=== PATIENT | female | born 2000 | race Caucasian/White ===

== ENCOUNTER 2019-10-06 21:20 | Emergency (ER) | payer SELFPAY ==
--- NOTE | 2019-10-06 21:30 | Event Note ---
ED Screening Note Date of service: 10/06/19 Time: 21:26 ED Screening Note: Pt c/o overdose on prozac x today. States she took 5 20 mg tabs @ 5pm c/o dry mouth and left arm pain denies intention to harm herself-states she was trying to calm her anxiety hx of attempted suicide in the past Pt is accompanied by her mother This initial assessment/diagnostic orders/clinical plan/treatment(s) is/are subject to change based on patients health status, clinical progression and re- assessment by fellow clinical providers in the ED. Further treatment and workup at subsequent clinical providers discretion. Patient/guardian urged not to elope from the ED as their condition may be serious if not clinically assessed and managed. Initial orders include: labs mental health eval
[2019-10-06 22:06] LABS: Basophils % (Auto) 0.4 % (0.0-1.8); Eosinophils % (Auto) 0.1 % (0.0-4.3); Hematocrit 33.5 % (30.3-42.9); Hemoglobin 11.3 gm/dl (10.1-14.3); Lymphocytes # (Auto) 1.8 K/mm3 (1.2-5.4); Lymphocytes % (Auto) 17.2 % (13.4-35.0); Mean Corpuscular HGB Conc 34 % (30-34); Mean Corpuscular Volume 81 fl (79-97); Monocytes # (Auto) 0.7 K/mm3 (0.0-0.8); Monocytes % (Auto) 6.6 % (0.0-7.3); Platelet Count 282 K/mm3 (140-440); Red Blood Count 4.15 M/mm3 (3.65-5.03); Red Cell Distribution Width 14.6 % (13.2-15.2)
--- NOTE | 2019-10-06 22:11 | Emergency Department Report ---
ED General Adult HPI - General Chief complaint: Overdose Stated complaint: OVERDOSE Time Seen by Provider: 10/06/19 21:26 Source: patient, family, RN notes reviewed Mode of arrival: Ambulatory Limitations: No Limitations - History of Present Illness Initial comments: This is a pleasant 19-year-old female who is not known to this provider previously. During the entire history and physical, I am guidance counselor in escorted by nurse Chio Berrios The patient presents to the ER after she took extra fluoxetine, 20 mg, 5 tablets, at 5:00 PM today. She states that she did not come to the ER until now because she waited a few hours to tell her mother because she was embarrassed. She reports that this was not a homicidal or suicidal gesture, but she took the extra money because she was feeling anxious about psychosocial situations. She also endorses resolved left anterior forearm cramping. The patient has no additional complaints at this time. The patient states she is not homicidal, suicidal, is not experiencing hallucinations, and she does not have access to guns or firearms. Her mother is at the bedside, and she corroborates this. -: Sudden Consistency: now resolved Improves with: none Worsens with: none - Related Data Allergies Allergy/AdvReac Type Severity Reaction Status Date / Time No Known Allergies Allergy Unverified 10/06/19 21:34 ED Review of Systems ROS: Stated complaint: OVERDOSE Other details as noted in HPI Constitutional: denies: fever Eyes: denies: eye discharge ENT: denies: congestion Respiratory: denies: wheezing Cardiovascular: denies: syncope Gastrointestinal: denies: abdominal pain Musculoskeletal: myalgia Psychiatric: anxiety. denies: auditory hallucinations, visual hallucinations, homicidal thoughts, suicidal thoughts ED Past Medical Hx - Past Medical History Previous Medical History?: Yes Hx Psychiatric Treatment: Yes (anxiety,depression) - Surgical History Past Surgical History?: No - Social History Smoking Status: Never Smoker Substance Use Type: None ED Physical Exam - General Limitations: No Limitations General appearance: alert, in no apparent distress - Head Head exam: Present: atraumatic, normocephalic - Eye Eye exam: Present: normal appearance, EOMI. Absent: nystagmus - ENT ENT exam: Present: normal exam, normal orophraynx, mucous membranes moist, normal external ear exam - Neck Neck exam: Present: normal inspection, full ROM. Absent: tenderness, meningismus - Respiratory Respiratory exam: Present: normal lung sounds bilaterally. Absent: respiratory distress - Cardiovascular Cardiovascular Exam: Present: regular rate, normal rhythm, normal heart sounds. Absent: bradycardia, tachycardia, irregular rhythm, systolic murmur, diastolic murmur, rubs, gallop - GI/Abdominal GI/Abdominal exam: Present: soft. Absent: distended, tenderness, guarding, rebound, rigid, pulsatile mass - Extremities Exam Extremities exam: Present: normal inspection, full ROM, other (2+ pulses noted in the bilateral upper extremities. The bilateral upper and lower extremity muscular compartments are soft. There is no crepitus. The pelvis is stable. There is no long bony tenderness.). Absent: pedal edema, calf tenderness - Back Exam Back exam: Present: normal inspection. Absent: tenderness, CVA tenderness (R), CVA tenderness (L), paraspinal tenderness, vertebral tenderness - Neurological Exam Neurological exam: Present: alert, oriented X3, other (there is no facial droop. The tongue is midline. Extraocular movements are intact bilaterally. Patient speaking in full complete sentences. Shoulder shrug is intact bilaterally. Hearing is grossly intact bilaterally. Visual acuity intact to finger counting and color perception at a close distance. 5/5 strength 4 extremities. Sensation intact to light touch in 4 extremities.) - Psychiatric Psychiatric exam: Present: anxious. Absent: homicidal ideation, suicidal ideation - Skin Skin exam: Present: warm, dry, intact, normal color. Absent: rash ED Course Vital Signs 10/06/19 10/06/19 10/06/19 21:26 22:17 22:30 Temperature 98.4 F Pulse Rate 65 76 Respiratory 18 11 L Rate Blood Pressure 129/65 125/77 127/76 O2 Sat by Pulse 100 100 Oximetry 10/06/19 10/06/19 10/06/19 22:45 23:00 23:15 Temperature Pulse Rate 77 74 64 Respiratory 18 16 21 Rate Blood Pressure 138/79 134/75 127/78 O2 Sat by Pulse 100 100 100 Oximetry 10/06/19 10/06/19 10/06/19 23:30 23:36 23:45 Temperature Pulse Rate 69 71 69 Respiratory 22 21 18 Rate Blood Pressure 132/74 132/74 121/76 O2 Sat by Pulse 100 99 100 Oximetry 10/07/19 10/07/19 10/07/19 00:00 00:15 00:30 Temperature Pulse Rate 67 69 71 Respiratory 18 20 17 Rate Blood Pressure 129/72 136/73 128/73 O2 Sat by Pulse 100 99 100 Oximetry 10/07/19 10/07/19 10/07/19 00:45 01:00 01:15 Temperature Pulse Rate 71 70 67 Respiratory 20 18 17 Rate Blood Pressure 123/62 120/63 125/63 O2 Sat by Pulse 98 98 98 Oximetry 10/07/19 10/07/19 10/07/19 01:30 01:45 02:00 Temperature Pulse Rate 72 68 76 Respiratory 21 16 19 Rate Blood Pressure 138/72 123/69 127/60 O2 Sat by Pulse 100 100 100 Oximetry 10/07/19 10/07/19 10/07/19 02:15 02:30 02:45 Temperature Pulse Rate 69 67 70 Respiratory 20 16 18 Rate Blood Pressure 119/66 125/74 137/74 O2 Sat by Pulse 99 100 100 Oximetry - Reevaluation(s) Reevaluation #1: 10/06/19 22:31 Differential diagnosis, including not limited to: Anxiety, accidental overdose, medical clearance Assessment and plan: 19-year-old female who presents with overdose, without intention to self-harm, secondary to anxiety, does not meet 1013 criteria at this time, or involuntary hold criteria at this time. She is alert, oriented, sober, and exhibits decision-making capacity. Collateral information obtained from family, and they also corroborates that they do not believe the patient is trying to harm herself. The patient indicates she is able to follow-up with an outpatient psychiatric facility for further care. She is amenable to waiting for screening laboratory studies. We will discuss with the [place] [facility]. Patient presents more than one hour after ingestion and is therefore not a charcoal candidate. Patient is counseled to not take medications inappropriately, and adhere to medication dosing instructions. She has no extremity complaints at this time, and her physical and extremity exam are both unremarkable. Reevaluation #2: 10/06/19 22:48 Contacted Aleksandar at the [facility] [place] [facility]. They recommend up to 6 hours of observation at the discretion of this physician. We do not suspect intentional overdose, however, we will observe the patient as we elect to be conservative. We discussed this with the patient and her mother, who verbalized understanding, and whom are amenable to this plan of care. Patient at this time appears to be quite comfortable, and in no acute distress. Reevaluation #3: 10/07/19 00:45 reassessed, no distress vitals stable Reevaluation #4: 10/07/19 03:02 The patient is reassessed multiple times. She is in no acute distress. Vital signs remained stable. She endorses readiness for discharge. ED Medical Decision Making - Lab Data Result diagrams: 10/06/19 21:45 10/06/19 21:45 Vital Signs 10/06/19 21:26 Temperature 98.4 F Pulse Rate 65 Respiratory 18 Rate Blood Pressure 129/65 O2 Sat by Pulse 100 Oximetry Lab Results 10/06/19 Range/Units 21:45 WBC 10.3 (4.5-11.0) K/mm3 RBC 4.15 (3.65-5.03) M/mm3 Hgb 11.3 (10.1-14.3) gm/dl Hct 33.5 (30.3-42.9) % MCV 81 (79-97) fl MCH 27 L (28-32) pg MCHC 34 (30-34) % RDW 14.6 (13.2-15.2) % Plt Count 282 (140-440) K/mm3 Lymph % (Auto) 17.2 (13.4-35.0) % Sac % (Auto) 6.6 (0.0-7.3) % Eos % (Auto) 0.1 (0.0-4.3) % Baso % (Auto) 0.4 (0.0-1.8) % Lymph # 1.8 (1.2-5.4) K/mm3 Sac # 0.7 (0.0-0.8) K/mm3 Eos # 0.0 (0.0-0.4) K/mm3 Baso # 0.0 (0.0-0.1) K/mm3 Seg Neutrophils % 75.7 H (40.0-70.0) % Seg Neutrophils # 7.8 H (1.8-7.7) K/mm3 - EKG Data -: EKG Interpreted by Md EKG shows normal: sinus rhythm Rate: normal - EKG Data When compared to previous EKG there are: previous EKG unavailable 10/06/19 22:31 The EKG shows a sinus arrhythmia, 60 beats for minute, normal axis, QTC within normal limits, the EKG is unremarkable, there is no prior for comparison, the EKG is not consistent with ST elevation myocardial infarction. Critical care attestation.: If time is entered above; I have spent that time in minutes in the direct care of this critically ill patient, excluding procedure time. ED Disposition Clinical Impression: Overdose Qualifiers: Encounter type: initial encounter Injury intent: accidental or unintentional Qualified Code(s): T50.901A - Poisoning by unspecified drugs, medicaments and biological substances, accidental (unintentional), initial encounter Disposition: TO HOME OR SELFCARE Is pt being admited?: No Does the pt Need Aspirin: No Condition: Stable Additional Instructions: Please do not overdose or take inappropriate quantities of prescription medications. In the future, only take medication as directed on prescription. Overdosing on medication may cause disability, , paralysis, loss of quality of life. Follow-up with the primary care doctor or psychiatrist within the next month. Return to the emergency room right away with new, worsened, different symptoms, or symptoms not present on the initial emergency room evaluation. Referrals: [facility] [Provider Group] - 3-5 Days [facility] [Provider Group] - 3-5 Days
[2019-10-06 22:28] LABS: Alanine Aminotransferase 15 units/L (7-56); Albumin 4.6 g/dL (3.9-5); BUN/Creatinine Ratio 14; Blood Urea Nitrogen 7 mg/dL (7-17); Calcium 9.6 mg/dL (8.4-10.2); Hemolysis Index 0
[2019-10-06 23:00] LABS: Bilirubin,Urine NEG (Negative); Blood,Urine NEG (Negative); Color,Urine Straw (Yellow); Protein,Urine <15 mg/dL mg/dL (Negative); Urobilinogen,Urine < 2.0 mg/dL (<2.0); WBC,Urine < 1.0 /HPF (0.0-6.0)
[2019-10-06 23:02] LABS: HCG Qualitative,Urine Negative (Negative)
[2019-10-06 23:07] LABS: Amphetamine Screen,Urine PRESUMPTIVE NEGATIVE; Benzodiazepines Screen,Urine PRESUMPTIVE NEGATIVE; Cannabinoid Screen,Urine PRESUMPTIVE NEGATIVE; Cocaine Screen,Urine PRESUMPTIVE NEGATIVE; Methadone Screen,Urine PRESUMPTIVE NEGATIVE; Opiate Screen,Urine PRESUMPTIVE NEGATIVE
[2019-10-07 02:55] VITALS: BP 137/74
== END 2019-10-07 03:27 | disposition home or self-care (01) ==
LOC: ED 21:20
DX: T43.221A Poisoning by selective serotonin reuptake inhibitors, accidental (unintentional), initial encounter (principal); F41.9 Anxiety disorder, unspecified; F32.9 Major depressive disorder, single episode, unspecified; Y92.89 Other specified places as the place of occurrence of the external cause
CPT/HCPCS: 36415; 80053; 80307; 80320; 81001; 81025; 82550; 83735; 85025; 85027; 93005; 93010; G0480